=== PATIENT | male | born 1975 | race Caucasian/White ===

== ENCOUNTER 2018-06-11 15:15 | Inpatient (IN) | payer OTHER ==
[2018-06-11 20:08] LABS: WHITE BLOOD COUNT 26.7 10^3/ul (4.8-10.8)
[2018-06-11 20:08] LABS: ABNORMAL IP MESSAGE 1; HEMATOCRIT 32.2 % (42.0-52.0); HEMOGLOBIN 10.7 g/dl (14.0-18.0); MEAN CORPUSCULAR HEMOGLOBIN 35.5 pg (29.0-33.0); MEAN CORPUSCULAR HGB CONC 33.2 g/dl (32.0-37.0); MEAN PLATELET VOLUME 10.8 fl (7.4-10.4); PLATELET COUNT 445 10^3/UL (140-415); POSITIVE DIFF @See below; RED BLOOD COUNT 3.01 10^6/ul (4.70-6.10); RED CELL DISTRIBUTION WIDTH 17.2 % (11.5-14.5)
[2018-06-11 20:12] LABS: ADD MAN DIFF? YES
[2018-06-11 20:13] LABS: PATH REVIEW? YES
[2018-06-11 20:26] LABS: INR 1.96; PROTIME 22.8 Sec (11.9-14.9); PT RATIO 1.8
[2018-06-11 20:27] LABS: PARTIAL THROMBOPLASTIN TIME 48.5 Sec (25.0-35.0)
[2018-06-11 20:32] LABS: ALANINE AMINOTRANSFERASE 139 IU/L (13-69); ALBUMIN 4.3 g/dl (3.3-4.9); ALKALINE PHOSPHATASE 238 IU/L (42-121); ANION GAP 18 (8-16); ASPARTATE AMINO TRANSFERASE 214 IU/L (15-46); BILIRUBIN,INDIRECT 3.9 mg/dl (0-1.1); BILIRUBIN,TOTAL 19.3 mg/dl (0.2-1.3); BLOOD UREA NITROGEN 18 mg/dl (7-20); CALCIUM 9.1 mg/dl (8.4-10.2); CARBON DIOXIDE 21 mmol/L (21-31); CHLORIDE 108 mmol/L (97-110); CREATININE 1.04 mg/dl (0.61-1.24); GLUCOSE 95 mg/dl (70-220); LIPASE 224 U/L (23-300); POTASSIUM 3.6 mmol/L (3.5-5.1); SODIUM 143 mmol/L (135-144); TOTAL PROTEIN 9.2 g/dl (6.1-8.1)
[2018-06-11 20:33] LABS: ALBUMIN/GLOBULIN RATIO 0.87
[2018-06-11] MEDS: PIPER-TAZO 3.375 GM IV (PMX) 100 ML IVPB (21:10)
[2018-06-11 21:20] LABS: ANISOCYTOSIS 2+ (0-0); BAND NEUTROPHILS #M 2.4 10^3/ul (0.0-0.6); BAND NEUTROPHILS % (M) 9 % (0-4); LYMPHOCYTES #M 0.2 10^3/ul (0.8-2.9); LYMPHOCYTES % (M) 1 % (15-51); MONOCYTES % (M) 4 % (0-11); PLATELET ESTIMATE NORMAL; REACTIVE LYMPHOCYTES #M 0.5 10^3/ul (0.0-0.0); REACTIVE LYMPHOCYTES% (M) 2 % (0-0); SEG NEUT #M 23.1 10^3/ul (1.6-7.5); SEGMENTED NEUTROPHILS (M) % 84 % (39-77); TARGET CELLS 1+ (0-0)
[2018-06-11] MEDS: SOD CHLORIDE 0.9% 1,000 ML IV (21:35)
[2018-06-11 21:57] LABS: LACTATE DEHYDROGENASE 509 IU/L (313-618)
[2018-06-11] MEDS ORDERED: ACETAMINOPHEN 325 MG TAB PO (22:00)
[2018-06-11] MEDS ORDERED: ONDANSETRON 4 MG INJ IV ×2 (22:00→23:30)
[2018-06-12] MEDS ORDERED: ONDANSETRON 4 MG INJ IV (06:00)
[2018-06-12] MEDS ORDERED: ALBUTEROL/IPRATROPIUM (NEB) 3 ML AMP HHN (06:00)
[2018-06-12] MEDS ORDERED: NACL 0.9% 3 ML SYG IV (06:00)
[2018-06-12] MEDS ORDERED: MULTIVITAMIN WITH MINERALS PO (10:00)
[2018-06-12] MEDS: MULTIVITAMINS THERAPEUTIC TAB PO (10:22)
[2018-06-12] MEDS: predniSONE 20 MG TAB PO (10:22)
[2018-06-12 11:05] LABS: ADD MAN DIFF? NO
[2018-06-12 11:28] LABS: IRON 57 ug/dl (35-150)
[2018-06-12 11:30] LABS: ALANINE AMINOTRANSFERASE 107 IU/L (13-69); ALBUMIN 3.2 g/dl (3.3-4.9); ALBUMIN/GLOBULIN RATIO 0.82; ALKALINE PHOSPHATASE 175 IU/L (42-121); ANION GAP 16 (8-16); ASPARTATE AMINO TRANSFERASE 179 IU/L (15-46); BILIRUBIN,INDIRECT 3.5 mg/dl (0-1.1); BILIRUBIN,TOTAL 16.4 mg/dl (0.2-1.3); BLOOD UREA NITROGEN 17 mg/dl (7-20); CALCIUM 8.7 mg/dl (8.4-10.2); CARBON DIOXIDE 23 mmol/L (21-31); CHLORIDE 108 mmol/L (97-110); CHOL/HDL RATIO 11.8 RATIO; CHOLESTEROL 166 mg/dl (100-200); CREATININE 1.07 mg/dl (0.61-1.24); GLUCOSE 106 mg/dl (70-220); HDL CHOLESTEROL 14 mg/dl (27-67); LDL CHOLESTEROL,CALCULATED 75 mg/dl; POTASSIUM 3.5 mmol/L (3.5-5.1); SODIUM 143 mmol/L (135-144); TOTAL PROTEIN 7.1 g/dl (6.1-8.1); TRIGLYCERIDES 387 mg/dl (0-149)
[2018-06-12 11:40] LABS: % IRON SATURATION 28 % SAT (22-52); TOTAL IRON BINDING CAPACITY 201 ug/dl (241-421)
[2018-06-12 12:34] LABS: FOLATE 14.6 ng/ml (2.8-20.0)
[2018-06-12 13:07] LABS: ABNORMAL IP MESSAGE 1; BASOPHIL # 0.1 10^3/ul (0.0-0.1); BASOPHILS % 0.3 % (0.0-2.0); EOSINOPHILS # 0.3 10^3/ul (0.0-0.5); EOSINOPHILS % 1.3 % (0.0-7.0); HEMATOCRIT 28.6 % (42.0-52.0); HEMOGLOBIN 9.6 g/dl (14.0-18.0); LYMPHOCYTES # 0.7 10^3/ul (0.8-2.9); LYMPHOCYTES % 3.5 % (15.0-51.0); MEAN CORPUSCULAR HEMOGLOBIN 35.8 pg (29.0-33.0); MEAN CORPUSCULAR HGB CONC 33.6 g/dl (32.0-37.0); MEAN CORPUSCULAR VOLUME 106.7 fl (82.0-101.0); MEAN PLATELET VOLUME 11.4 fl (7.4-10.4); MONOCYTE # 1.6 10^3/ul (0.3-0.9); MONOCYTES % 7.9 % (0.0-11.0); NEUTROPHIL # 17.5 10^3/ul (1.6-7.5); NEUTROPHILS % 86.5 % (39.0-77.0); PLATELET COUNT 397 10^3/UL (140-415); POSITIVE DIFF @See below; RED BLOOD COUNT 2.68 10^6/ul (4.70-6.10); RED CELL DISTRIBUTION WIDTH 17.4 % (11.5-14.5)
[2018-06-12 13:07] LABS: WHITE BLOOD COUNT 20.3 10^3/ul (4.8-10.8)
[2018-06-12] MEDS: LIDOCAINE 1% (MPF) 5 ML VIAL (16:10)
[2018-06-12 18:05] LABS: FLD MN% 84.4 %; FLD PMN% 15.6 %; FLD RBC 0 /uL; FLD WBC 77 /cmm
[2018-06-12 18:13] LABS: FLUID LD 180 U/L; FLUID TOTAL PROTEIN 2.9 g/dl; FLUID TYPE ASCITIES FLUID
[2018-06-12 18:21] LABS: FLD CLARITY CLEAR; FLD COLOR AMBER
[2018-06-12 18:21] LABS: FLD TYPE ASCITES
[2018-06-13 06:05] LABS: ADD MAN DIFF? NO
[2018-06-13 06:12] LABS: WHITE BLOOD COUNT 22.2 10^3/ul (4.8-10.8)
[2018-06-13 06:12] LABS: BASOPHIL # 0.1 10^3/ul (0.0-0.1); BASOPHILS % 0.2 % (0.0-2.0); EOSINOPHILS # 0.1 10^3/ul (0.0-0.5); EOSINOPHILS % 0.5 % (0.0-7.0); HEMATOCRIT 28.8 % (42.0-52.0); HEMOGLOBIN 9.7 g/dl (14.0-18.0); LYMPHOCYTES # 0.8 10^3/ul (0.8-2.9); LYMPHOCYTES % 3.6 % (15.0-51.0); MEAN CORPUSCULAR HEMOGLOBIN 35.5 pg (29.0-33.0); MEAN CORPUSCULAR HGB CONC 33.7 g/dl (32.0-37.0); MEAN CORPUSCULAR VOLUME 105.5 fl (82.0-101.0); MEAN PLATELET VOLUME 11.2 fl (7.4-10.4); MONOCYTE # 1.3 10^3/ul (0.3-0.9); MONOCYTES % 5.7 % (0.0-11.0); NEUTROPHIL # 19.8 10^3/ul (1.6-7.5); NEUTROPHILS % 89.3 % (39.0-77.0); PLATELET COUNT 422 10^3/UL (140-415); RED BLOOD COUNT 2.73 10^6/ul (4.70-6.10); RED CELL DISTRIBUTION WIDTH 17.4 % (11.5-14.5)
[2018-06-13 06:36] LABS: PHOSPHORUS 3.3 mg/dl (2.5-4.9)
[2018-06-13 06:36] LABS: MAGNESIUM 1.5 mg/dl (1.7-2.5)
[2018-06-13 07:00] LABS: ALANINE AMINOTRANSFERASE 108 IU/L (13-69); ALBUMIN 3.1 g/dl (3.3-4.9); ALBUMIN/GLOBULIN RATIO 0.77; ALKALINE PHOSPHATASE 218 IU/L (42-121); ANION GAP 15 (8-16); ASPARTATE AMINO TRANSFERASE 166 IU/L (15-46); BILIRUBIN,INDIRECT 3.4 mg/dl (0-1.1); BILIRUBIN,TOTAL 15.2 mg/dl (0.2-1.3); BLOOD UREA NITROGEN 16 mg/dl (7-20); CALCIUM 8.7 mg/dl (8.4-10.2); CARBON DIOXIDE 21 mmol/L (21-31); CHLORIDE 109 mmol/L (97-110); CREATININE 0.92 mg/dl (0.61-1.24); GLUCOSE 98 mg/dl (70-220); POTASSIUM 4.1 mmol/L (3.5-5.1); SODIUM 141 mmol/L (135-144); TOTAL PROTEIN 7.1 g/dl (6.1-8.1)
[2018-06-13] MEDS: predniSONE 20 MG TAB PO (08:48)
[2018-06-13] MEDS: MULTIVITAMINS THERAPEUTIC TAB PO (08:49)
[2018-06-13 12:22] LABS: HAAIG REFLEX REFLEX FILED
[2018-06-13] MEDS: MAGNESIUM SULFATE 4 GM/100 ML 100 ML IVPB (12:24)
[2018-06-13 13:26] LABS: CARCINOEMBRYONIC ANTIGEN 6.2 ng/ml (0.0-5.0)
[2018-06-13 15:19] LABS: HEPATITIS B SURFACE ANTIGEN NEGATIVE (NEGATIVE)
[2018-06-13 15:37] LABS: HEPATITIS B CORE ANTIBODY NEGATIVE (NEGATIVE); HEPATITIS C VIRAL ANTIBODY NEGATIVE (NEGATIVE)
[2018-06-14 06:35] LABS: ADD MAN DIFF? NO
[2018-06-14 06:44] LABS: ABNORMAL IP MESSAGE 1; BASOPHIL # 0.1 10^3/ul (0.0-0.1); BASOPHILS % 0.3 % (0.0-2.0); EOSINOPHILS # 0.3 10^3/ul (0.0-0.5); EOSINOPHILS % 1.3 % (0.0-7.0); HEMATOCRIT 30.7 % (42.0-52.0); HEMOGLOBIN 10.4 g/dl (14.0-18.0); LYMPHOCYTES # 1.1 10^3/ul (0.8-2.9); LYMPHOCYTES % 4.5 % (15.0-51.0); MEAN CORPUSCULAR HEMOGLOBIN 34.9 pg (29.0-33.0); MEAN CORPUSCULAR HGB CONC 33.9 g/dl (32.0-37.0); MEAN PLATELET VOLUME 11.2 fl (7.4-10.4); MONOCYTE # 2.2 10^3/ul (0.3-0.9); MONOCYTES % 9.3 % (0.0-11.0); NEUTROPHIL # 20.1 10^3/ul (1.6-7.5); NEUTROPHILS % 83.8 % (39.0-77.0); PLATELET COUNT 446 10^3/UL (140-415); POSITIVE DIFF @See below; RED BLOOD COUNT 2.98 10^6/ul (4.70-6.10); RED CELL DISTRIBUTION WIDTH 17.2 % (11.5-14.5)
[2018-06-14 07:16] LABS: ANION GAP 14 (8-16); BLOOD UREA NITROGEN 17 mg/dl (7-20); CALCIUM 8.8 mg/dl (8.4-10.2); CARBON DIOXIDE 22 mmol/L (21-31); CHLORIDE 105 mmol/L (97-110); CREATININE 1.12 mg/dl (0.61-1.24); GLUCOSE 90 mg/dl (70-220); POTASSIUM 4.2 mmol/L (3.5-5.1); SODIUM 137 mmol/L (135-144)
[2018-06-14] MEDS: FUROSEMIDE 20 MG TAB PO (09:04)
[2018-06-14] MEDS: predniSONE 20 MG TAB PO (09:04)
[2018-06-14] MEDS: MULTIVITAMINS THERAPEUTIC TAB PO (09:04)
[2018-06-14] MEDS: SPIRONOLACTONE 50 MG TAB PO (09:04)
[2018-06-14] MEDS: SOD CHLORIDE 0.9% 100 ML (12:42)
[2018-06-14] MEDS: IOHEXOL 300MG/ML 150 ML BTL (12:42)
[2018-06-15 05:43] LABS: ADD MAN DIFF? NO
[2018-06-15 05:46] LABS: ABNORMAL IP MESSAGE 1; BASOPHILS % 0.2 % (0.0-2.0); EOSINOPHILS # 0.2 10^3/ul (0.0-0.5); EOSINOPHILS % 0.9 % (0.0-7.0); HEMATOCRIT 30.4 % (42.0-52.0); HEMOGLOBIN 10.2 g/dl (14.0-18.0); LYMPHOCYTES # 1.1 10^3/ul (0.8-2.9); LYMPHOCYTES % 5.2 % (15.0-51.0); MEAN CORPUSCULAR HEMOGLOBIN 34.6 pg (29.0-33.0); MEAN CORPUSCULAR HGB CONC 33.6 g/dl (32.0-37.0); MEAN CORPUSCULAR VOLUME 103.1 fl (82.0-101.0); MEAN PLATELET VOLUME 10.5 fl (7.4-10.4); MONOCYTE # 1.9 10^3/ul (0.3-0.9); MONOCYTES % 8.6 % (0.0-11.0); NEUTROPHIL # 18.2 10^3/ul (1.6-7.5); NEUTROPHILS % 84.4 % (39.0-77.0); PLATELET COUNT 423 10^3/UL (140-415); POSITIVE DIFF @See below; RED BLOOD COUNT 2.95 10^6/ul (4.70-6.10); RED CELL DISTRIBUTION WIDTH 16.8 % (11.5-14.5)
[2018-06-15 05:46] LABS: WHITE BLOOD COUNT 21.6 10^3/ul (4.8-10.8)
[2018-06-15 06:16] LABS: ANION GAP 13 (8-16); BLOOD UREA NITROGEN 21 mg/dl (7-20); CALCIUM 8.9 mg/dl (8.4-10.2); CARBON DIOXIDE 24 mmol/L (21-31); CHLORIDE 107 mmol/L (97-110); CREATININE 1.03 mg/dl (0.61-1.24); GLUCOSE 93 mg/dl (70-220); POTASSIUM 4.4 mmol/L (3.5-5.1); SODIUM 140 mmol/L (135-144)
[2018-06-15] MEDS: SPIRONOLACTONE 50 MG TAB PO (08:44)
[2018-06-15] MEDS: FUROSEMIDE 20 MG TAB PO (08:45)
[2018-06-15] MEDS: MULTIVITAMINS THERAPEUTIC TAB PO (08:45)
[2018-06-15] MEDS: predniSOLONE (3 MG/ML) CUP PO ×2 (08:46→21:45)
[2018-06-15 09:36] LABS: ALANINE AMINOTRANSFERASE 124 IU/L (13-69); ALBUMIN 3.3 g/dl (3.3-4.9); ALKALINE PHOSPHATASE 201 IU/L (42-121); ASPARTATE AMINO TRANSFERASE 187 IU/L (15-46); BILIRUBIN,INDIRECT 3.7 mg/dl (0-1.1); BILIRUBIN,TOTAL 16.9 mg/dl (0.2-1.3); TOTAL PROTEIN 6.9 g/dl (6.1-8.1)
[2018-06-15 13:51] LABS: ANA SCREEN NEGATIVE (NEGATIVE)
[2018-06-15 16:51] LABS: HAPTOGLOBIN 245 mg/dL (43-212)
[2018-06-15] MEDS ORDERED: predniSOLONE (3 MG/ML) CUP PO (17:00)
[2018-06-16] MEDS: SPIRONOLACTONE 50 MG TAB PO (08:36)
[2018-06-16] MEDS: MULTIVITAMINS THERAPEUTIC TAB PO (08:36)
[2018-06-16] MEDS: FUROSEMIDE 20 MG TAB PO (08:37)
[2018-06-16] MEDS: predniSOLONE (3 MG/ML) CUP PO (08:38)
[2018-06-17 00:04] LABS: MITOCHONDRIAL TB NEGATIVE (NEGATIVE)
== END 2018-06-16 13:30 | disposition home or self-care (01) | DRG 433 ==
LOC: E/R 15:15 → PP2 21:38
PROVIDERS: Internal Medicine
PROC: 0W9G3ZZ Drainage of Peritoneal Cavity, Percutaneous Approach (ICD-10-PCS; principal; 2018-06-12)
DX: K70.31 Alcoholic cirrhosis of liver with ascites (principal); D68.9 Coagulation defect, unspecified; K70.11 Alcoholic hepatitis with ascites; D53.9 Nutritional anemia, unspecified; F10.11 Alcohol abuse, in remission; K80.20 Calculus of gallbladder without cholecystitis without obstruction; D63.8 Anemia in other chronic diseases classified elsewhere; Z87.891 Personal history of nicotine dependence
CPT/HCPCS: 36415; 74177; 74181; 76700; 80048; 80053; 80061; 80076; 82042; 82105; 82378; 82525; 82607; 82728; 82746; 83010; 83540; 83615; 83690; 83735; 84100; 84157; 85025; 85610; 85730; 86038; 86255; 86301; 86704; 86709; 86803; 87040; 87070; 87081; 87102; 87116; 87340; 88104; 88305; 89051; 96374; 99285-25